=== PATIENT | female | born 1970 | race African-American/Black ===

== ENCOUNTER 2018-11-18 12:54 | Outpatient (CLI) | payer OTHER ==
--- NOTE | 2018-11-18 14:13 | RAD ---
RIGHT FOOT THREE VIEWS: HISTORY: Right foot pain. COMPARISON: None. FINDINGS: Three views of the right foot show no evidence of acute fracture or dislocation. No soft tissue swel ling is seen. No degenerative changes are present. IMPRESSION: Unremarkable examination. POS: [facility]
== END 2018-11-18 12:55 | disposition home or self-care (01) ==
LOC: BICRAD 12:54
PROVIDERS: ATTEND Nurse Practitioner Family
DX: M79.671 Pain in right foot (principal)